=== PATIENT | male | born 1990 | race Caucasian/White ===

== ENCOUNTER 2018-02-27 10:30 | Emergency (ER) | payer OTHER | END 2018-02-27 12:50 | disposition home or self-care (01) | LOC: M ED 10:30 | DX: R21 Rash and other nonspecific skin eruption (principal) | CPT/HCPCS: 99282 ==

== ENCOUNTER 2019-06-08 08:29 | Emergency (ER) | payer OTHER ==
[~2019-06-08] VITALS: Ht 162.6 cm; Wt 63.6 kg
[~2019-06-08 08:29] MED LIST: BACT2CRE TOP; VALA1TAB64 PO
[2019-06-08 08:30] VITALS: BP 142/77
[2019-06-08] MEDS ORDERED: NAPROXEN 250 MG TAB PO ONE (09:30)
--- NOTE | 2019-06-08 09:30 | REP ---
Clinical: Trauma. Technique: AP, lateral, bilateral oblique views of the left ankle. Findings: Marked anterolateral soft tissue swelling is consistent with inversion injury. A small bony fragment is identified at the level of the medial malleolus which suggests small acute avulsion fracture. Impression: Marked soft tissue swelling. Small avulsion fracture of the medial malleolus. Electronically Signed by Nick Levine MD 06/08/2019 09:22 A
[2019-06-08] MEDS ORDERED: NAPR-837 PO (09:42)
== END 2019-06-08 09:40 | disposition home or self-care (01) ==
LOC: M ED 08:29
DX: S82.55XA Nondisplaced fracture of medial malleolus of left tibia, initial encounter for closed fracture (principal); W17.2XXA Fall into hole, initial encounter; Y92.89 Other specified places as the place of occurrence of the external cause; Y93.02 Activity, running; Y99.1 Military activity